=== PATIENT | female | born 1975 | race Caucasian/White ===

== ENCOUNTER → 2020-06-18 13:53 | Outpatient (CLI) | payer MEDICAID, SELFPAY ==
--- NOTE | 2020-06-18 13:59 | US_ITS ---
STUDY: SUPERFICIAL ULTRASOUND - LEFT UPPER EXTREMITY REASON FOR EXAM: Female, 44 years old. Palpable lump upper lt arm TECHNIQUE: A superficial ultrasound was performed with real-time and static szymanski-scale imaging. COMPARISON: None. FINDINGS: The palpable abnormality corresponds to a 1.6 cm x 1.4 cm x 0.8 cm echogenic nodule which is well circumscribed superior to the bicipital groove. This most likely represents a lipoma. US/Ext Non Vasc Limited/Soft Tiss IMPRESSION: The palpable normality most likely corresponds to a 1.6 cm x 1.4 cm x 0.8 cm lipoma. Electronically Signed: Seth Lyon, at 14:55 EST , Service support ,
== END ==
PROVIDERS: PCP Family Medicine; Referring Provider Nurse Practitioner Family; Visit Provider Nurse Practitioner Family
DX: R22.9 Localized swelling, mass and lump, unspecified (principal)
CPT/HCPCS: 76882

== ENCOUNTER 2024-03-18 16:14 | Emergency (ER) | payer MEDICAID, SELFPAY ==
[2024-03-18 16:17] VITALS: BP 155/96; PULSE 88; RESP 16; TEMP 36.4; O2SAT 99; BMI 50.8
--- NOTE | 2024-03-18 16:49 | EX.ED.DYSGE1 ---
HPI <RENO Farley - Last Filed: 03/18/24 17:55> History of Present Illness Chief Complaint: Back Narrative Narrative: Patient is a 48-year-old female with history of of low vitamin D who presents to the emergency department with 1 week of lower leg cramping, 2 days of pain to the left lower back, left upper buttock. Patient states that she had something similar multiple years ago, ended up being low vitamin D. She continues take her vitamin D, she is not sure what this is caused from. Pay states is worse at nighttime, states when she gets up and moving, she does feel better. She is concerned because she works this upcoming week. She denies any falling or traumatic injury. Denies any bowel or bladder incontinence. Denies any fever or chills. PFSH <RENO Farley - Last Filed: 03/18/24 17:55> PFSH Home Medications ?Medication ?Instructions ?Recorded ?Last Taken ?Type naproxen 500 mg tablet (Naprosyn) 500 mg PO BID PRN pain #20 tabs 03/18/24 Unknown Rx Allergy/AdvReac Type Severity Reaction Status Date / Time celecoxib (From Celebrex) Allergy PT UNSURE Verified 03/18/24 16:15 OF REACTION pregabalin (From Lyrica) Allergy PT UNABLE Verified 03/18/24 16:15 TO RESPOND-NEEDS F/U Social History Smoking Status: Never smoker ROS <RENO Farley - Last Filed: 03/18/24 17:55> ROS ED ROS Narrative Constitutional: Negative for fever, chills, weight loss, weakness Eyes: Negative for vision loss, vision change, double vision ENT: Negative for any sore throat, ear pain, congestion Cardiovascular: Negative for any chest pain, tightness, palpitations Respiratory: Negative for any cough, sputum production, hemoptysis, dyspnea, dyspnea on exertion, orthopnea Gastrointestinal: Negative for any abdominal pain, nausea, vomiting, diarrhea, constipation, blood in stool, blood in vomit : Negative for any urinary frequency, dysuria, retention, blood in urine Muscle skeletal: Negative for any neck pain. Positive for lower back pain, rating down the left leg, positive for leg cramping. Neurological: Negative for any headache, syncope, dizziness Skin: Negative for any rashes, itching, abrasions, lacerations Psychiatric: Negative for any depression, anxiety, stress, suicidal ideation, homicidal ideation Hematologic: Negative for any excessive bruising, easy bleeding EXAM <RENO Farley - Last Filed: 03/18/24 17:55> Physical Exam Narrative Exam Narrative: Vital signs reviewed. HEET: Head normocephalic atraumatic, TMs clear bilaterally. Posterior pharynx is clear, moist mucous membranes. Nares clear bilaterally. Neck: Supple with no lymphadenopathy or tenderness. No signs of meningismus. Cardiac: Regular rate and rhythm no murmurs gallops or rubs, equal peripheral pulses bilaterally. Respiratory: Lungs clear to auscultation bilaterally. No chest tenderness. Abdomen: Soft, nontender, nondistended. No abdominal bruit or pulsatile masses. No hepatosplenomegaly Extremities: No peripheral edema, no signs of gross trauma or deformity. Active full range of motion of all extremities. Equal strength to upper and lower extremities. Neuro: Cranial nerves II through XII intact, no focal neurological deficits. Patient was able to stand on heels, stand on tiptoes. Patient had normal gait. Skin: Clean dry and intact with no rash, purpura, petechiae, vesicles or pustules. Backs/flank: No CVA tenderness, no midline spinal tenderness, no deformity. Psych: Normal mood and affect. No SI, HI or acute psychosis. Const Vital Signs: 03/18/24 16:17 Temperature 97.6 F L Temperature Source Temporal Pulse Rate 88 Respiratory Rate 16 Blood Pressure 155/96 H Blood Pressure Mean 115 Pulse Ox 99 Oxygen Delivery Method Room Air <Dr. Maverick Reinoso MD - Last Filed: 03/18/24 19:34> Physical Exam Const Vital Signs: 03/18/24 16:17 Temperature 97.6 F L Temperature Source Temporal Pulse Rate 88 Respiratory Rate 16 Blood Pressure 155/96 H Blood Pressure Mean 115 Pulse Ox 99 Oxygen Delivery Method Room Air [facility] <RENO Farley - Last Filed: 03/18/24 17:55> [facility] Lab Data Labs: Laboratory Results - last 24 hr 03/18/24 17:15 Sodium 141 Potassium 4.1 Chloride 110 H Carbon Dioxide 28.0 Anion Gap 3 L BUN 17 Creatinine 0.82 Estim Creat Clear Calc 112.11 Est GFR (MDRD) Af Amer 94 Est GFR (MDRD) Non-Af 78 BUN/Creatinine Ratio 20.6 H Glucose 78 Calcium 9.2 Treatment and Re-Evaluation :: Differential diagnosis includes however is not limited to: Lumbar strain, sciatica, electrolyte abnormality, muscle strain, cauda equina, spinal abscess Patient appears to be in no obvious respiratory distress, nontoxic, vital signs are stable. Presenting to the emergency department with complaints of leg cramping, left lower back pain and rates down the left leg. Physical examination consistent muscle skeletal pain. Patient will receive a BMP looking for any electrolyte abnormality, IV Toradol. Patient will then be reevaluated. Low suspicion for any infectious etiology, no evidence of any cauda equina, spinal abscess. Patient's laboratory values were unremarkable, no evidence of any electrolyte abnormality. Mild relief with IV Toradol. At this time, physical examination consistent with muscle skeletal strain. She replaced in a short course of NSAIDs. She instructed to ice, form gentle stretching. Instructed return for any worsening symptoms. <Dr. Maverick Reinoso MD - Last Filed: 03/18/24 19:34> [facility] Narrative Medical decision making narrative: I have personally performed a face to face assessment of the patient and have reviewed the AGUSTO Note. I performed a substantive portion of the visit including all aspects of the following. My kingsley findings include: History is back pain. Back pain is atraumatic. Patient Nuys bowel bladder dysfunction. Patient Nuys saddle paresthesia anesthesia. Patient has dragging her foot. Patient denies buckling her knees going up or down steps. Patient denies fever, chills night sweats. Patient denies recent dental procedure. Patient has no known back problems. Exam is remarkable for a BMI of 50.8. Patient has reproducible left paralumbar pain. Patient has pain with bending to the right and left. Greater when she bends the left. Pain with extension and flexion. Gait observed normal without foot drop. No neurovascular mice of the lower extremity. There is practitioner's note was read. Based on my history and physical patient has muscular back pain. Will treat with NSAIDs and she has no contraindication. Medical Decision Making back pain a muscular etiology. Patient does not have symptoms or findings consistent with cauda equina or acute herniated disc. Suspect this is due to degenerative disc disease. Other additions or changes: Treatment with NSAIDs and short course of opiate analgesia. BMP was obtained to assess renal function she there are no prior labs available. Lab Data Attestation: I reviewed the patient's lab results. Lab results narrative: Basic metabolic panel is unremarkable. BUN and creatinine are normal and estimated GFR 78. Labs: Laboratory Results - last 24 hr 03/18/24 17:15 Sodium 141 Potassium 4.1 Chloride 110 H Carbon Dioxide 28.0 Anion Gap 3 L BUN 17 Creatinine 0.82 Estim Creat Clear Calc 112.11 Est GFR (MDRD) Af Amer 94 Est GFR (MDRD) Non-Af 78 BUN/Creatinine Ratio 20.6 H Glucose 78 Calcium 9.2 Discharge Plan Triage Chief Complaint: Back ED Midlevel Provider: Erich Garcia ED Provider: Maverick Reinoso Dx/Rx/DC Orders Clinical Impression: Lumbar back pain, Muscle cramp, Body mass index (BMI) greater than 50 Instructions: ED Back and Neck Pain, General Prescriptions: New naproxen [Naprosyn] 500 mg tablet 500 mg PO BID PRN (Reason: pain) Qty: 20 0RF Primary Care Provider: Capo Sheikh Referrals: Capo Sheikh MD [Primary Care Provider] - Activity Restrictions/Additional Instructions: Ensure that you ice multiple times a day. Perform gentle stretching. Print Language: Comoran Disposition Disposition: Home, Self Care Discharge Date/Time: 03/18/24 18:08
[2024-03-18] MEDS: Ketorolac 15 MG/ML Vial IV (17:13)
[2024-03-18 17:39] LABS: Anion Gap 3 (5-15); BUN 17 mg/dL (7-18); BUN/Creat Ratio 20.6 RATIO (10-20); Calcium,Total 9.2 mg/dL (8.5-10.1); Chloride 110 mmol/L (98-107); Creatinine, Serum 0.82 mg/dL (0.55-1.02); EST Glomerular Filtration Rate 78 mL/min (>60); Est Glom Filt Rate - Afr Amer 94 mL/min (>60); Estimated Creatinine Clearance 112.11 ml/min; Glucose 78 mg/dL (74-106); Potassium 4.1 mmol/L (3.5-5.1); Sodium Level 141 mmol/L (136-145)
== END 2024-03-18 18:08 | disposition home or self-care (01) ==
PROVIDERS: Nurse Practitioner; Emergency Provider Emergency Medicine; PCP Family Medicine; Visit Provider Emergency Medicine
DX: M54.50 Low back pain, unspecified (principal); R25.2 Cramp and spasm
CPT/HCPCS: 80048; 96374; 99282; A4216

== ENCOUNTER 2024-05-29 12:16 | Emergency (ER) | payer MEDICAID, SELFPAY ==
[2024-05-29 12:17] VITALS: BP 156/86; PULSE 90; RESP 16; TEMP 36.1; O2SAT 99; BMI 51.1
--- NOTE | 2024-05-29 13:45 | CT_ITS ---
STUDY: CT BRAIN WITHOUT CONTRAST REASON FOR EXAM: Female, 48 years old. Left-sided atrophy. Redness in the right eye. RADIATION DOSAGE (If Supplied By Facility): CTDIvol = ( 44.99 ) mGy, DLP = ( 796.11 ) mGycm TECHNIQUE: Transaxial CT imaging of the brain was performed without administration of intravenous contrast material. Individualized dose optimization techniques were used for this CT. COMPARISON: No relevant priors. FINDINGS: Normal soft tissue structures. Normal calvarium. Normal size ventricles and extra-axial spaces for the patient''s age. Normal white matter tracts of the cerebral hemispheres. Normal basal ganglia and thalami. Normal brainstem. Normal cerebellum. There is no intracranial hemorrhage. There are no findings of an acute ischemic infarction. Normal visualized paranasal sinuses. CT/Brain/Head without Contrast IMPRESSION: Normal unenhanced CT scan of the brain. Electronically Signed: Seth Lyon MD at 14:43 EDT ,
--- NOTE | 2024-05-29 13:46 | EX.ED.VIS.EY ---
HPI History of Present Illness Chief Complaint: Eye Problem Informant: patient Onset/Context/Timing Location: Left Eye Onset: Month(s) (1) Context: Gradual Onset Timing: Continuous Worsened by: Laying on left side Relieved by: Nothing Associated Symptoms Associated Symptoms - Eyes: Burning, Crusting, Pain, Photophobia and Redness; Negative for Eyelid swelling History of injury: No Narrative Narrative: Patient presents with left eye pain that has been gradually getting worse over the past month. Patient states it is constant. Patient describes it as dull and stinging. Patient states her pain is over the left eye and left temporal area. Patient states it is worse when she lays on her left side. Patient states nothing seems to help with it. Patient denies any visual changes. Patient admits to some redness in her left eye. Patient states that sometimes she has some crusting at night. Patient denies any other discharge or drainage. Patient denies any trauma or injury. Patient denies any fevers or chills. PFSH PFS Medical History (Updated 05/29/24 @ 15:[address] Antony Andino DO) Hypothyroidism Medical History no medical history Home Medications ?Medication ?Instructions ?Recorded ?Last Taken ?Type naproxen 500 mg tablet (Naprosyn) 500 mg PO BID PRN pain #20 tabs 03/18/24 Unknown Rx Allergy/AdvReac Type Severity Reaction Status Date / Time celecoxib (From Celebrex) Allergy PT UNSURE Verified 05/29/24 12:17 OF REACTION pregabalin (From Lyrica) Allergy PT UNABLE Verified 05/29/24 12:17 TO RESPOND-NEEDS F/U Surgical History (Updated 05/29/24 @ 14:[address] Antony Andino DO) H/O: hysterectomy Social History Smoking Status: Never smoker ROS ROS ED Constitutional Constitutional ED: Denies chills or fever(s) Eyes Eyes: Denies blurry vision or change in vision ENT ENT ED: Denies rhinorrhea or sore throat Cardiovascular Cardiovascular: Denies chest pain or palpitations Respiratory/Chest Respiratory/Chest: Denies cough or dyspnea Gastrointestinal Gastrointestinal: Reports nausea; Denies vomiting Genitourinary Genitourinary ED: Denies dysuria or hematuria Musculoskeletal Musculoskeletal: Denies back pain or neck pain Integumentary Denies abscess or rash Neurologic Neurologic: Reports headache(s); Denies weakness Allergic/Immunologic Allergic/Immunologic ED: Denies mouth swelling or urticaria EXAM Physical Exam Const Vital Signs: 05/29/24 12:17 Temperature 97 F L Temperature Source Temporal Pulse Rate 90 Respiratory Rate 16 Blood Pressure 156/86 H Blood Pressure Mean 109 Pulse Ox 99 Oxygen Delivery Method Room Air Positive well nourished and well developed General Appearance ED: well developed and NAD HEENT HEENT Narrative: There is no tenderness over the temporal artery. atraumatic Eyes Eyes Narrative: Pupils are equal, round, and reactive to light bilaterally. Extraocular muscles are intact. There is some conjunctival injection on the left. There is no discharge or drainage. Anterior chamber was clear. There is no hyphema noted. Funduscopic examination was not well-tolerated. Tetracaine and fluorescein dye was applied. Under slit-lamp examination, there are no corneal abrasions noted. Anterior chamber was clear. There is no cell or flare. Neck supple and no JVD Resp normal respiratory effort and clear to auscultation bilaterally Cardio regular rate and regular rhythm GI non-tender and non-distended Neuro oriented x3, CN's II-XII intact bilaterally, moves all extremities and no sensory deficits noted Sensorium / Orientation: alert Motor Exam: strength 5/5 throughout MDM MDM MDM Narrative Medical decision making narrative: Differential diagnosis includes corneal abrasion, conjunctivitis, foreign body, temporal arteritis, sinusitis, and intracranial mass. CT scan of the brain will be obtained to assess for intracranial mass and intracranial bleeding. CBC will be obtained to assess for leukocytosis and anemia. Basic metabolic profile will be obtained to assess for electrolyte abnormality and renal function. Sed rate will be obtained to assess for acute phase reactant. Lab Data Attestation: I reviewed the patient's lab results. Lab results narrative: CBC was reviewed and was within normal limits. Basic metabolic profile was reviewed and was essentially within normal limits. Sed rate was reviewed and was normal at 29. Radiography Diagnostic Testing: CT scan of the brain was obtained. There is no acute intracranial abnormality. This was interpreted by the radiologist and was also independently reviewed by myself. Treatment and Re-Evaluation Narrative: Patient was given Reglan and Benadryl. Patient is feeling better on reevaluation. Patient was advised of her findings. Patient was given a referral for ophthalmology. Patient was instructed to follow-up in 3 to 5 days. Patient was instructed to return if worse in any way. Patient understood and was agreeable with the plan. All questions were answered. Discharge Plan Triage Chief Complaint: Eye Problem ED Provider: Antony Andino Dx/Rx/DC Orders Clinical Impression: Headache, Pain in left eye Instructions: ED Pain, Acute, Uncertain Cause Prescriptions: No Action naproxen [Naprosyn] 500 mg tablet 500 mg PO BID PRN (Reason: pain) Qty: 20 0RF Primary Care Provider: Capo Sheikh Referrals: Siva De Leon MD [Med Staff - Active Staff] - 3-5 Days Capo Sheikh MD [Primary Care Provider] - 3-5 Days Print Language: Japanese Disposition Disposition: Home, Self Care
[2024-05-29] MEDS: Tetracaine 0.5% Ophthalmic Bottle 1 DRP OPHTHALMIC (14:01)
[2024-05-29] MEDS: Fluorescein 1 MG STRIP 1 STRIP OPHTHALMIC (14:01)
[2024-05-29 14:16] VITALS: BP 150/82; PULSE 88; RESP 16; O2SAT 99
[2024-05-29 14:19] LABS: Erythrocyte Sedimentation Rate 29 mm/hr (0-30)
[2024-05-29 14:22] LABS: Absolute Lymphocyte Count 2.33 X10^3/uL (0.83-4.51); Basophil# 0.04 X10^3/uL; Basophil% 0.6 % (0-1); Eosinophil# 0.15 X10^3/uL; Eosinophils% 2.1 % (0-5); Hemoglobin 13.3 g/dL (12.0-15.0); Lymphocyte # 2.33 X10^3/ul (0.83-4.51); Mean Corp Hgb Conc 31.7 g/dL (32-36); Mean Corpuscular Hgb 27.1 pg (27.0-32.0); Mean Corpuscular Volume 85.5 fL (81-99); Monocyte# 0.49 X10^3/uL; Monocyte% 6.9 % (0-10); NRBC Flagged by Analyzer 0 % (0-5); Neutrophil # 4.02 X10^3/uL (2.7-7.7); Platelet Count 291 K/mm3 (150-450); RBC Distribution Width SD 43.6 fl (35.1-43.9); Red Blood Count 4.91 M/mm3 (4.2-5.4); White Blood Count 7.1 K/mm3 (4.4-11.0)
[2024-05-29 14:28] LABS: Anion Gap 4 (5-15); BUN 17 mg/dL (7-18); BUN/Creat Ratio 21.6 RATIO (10-20); Calcium,Total 9.5 mg/dL (8.5-10.1); Chloride 107 mmol/L (98-107); Creatinine, Serum 0.79 mg/dL (0.55-1.02); EST Glomerular Filtration Rate 82 mL/min (>60); Est Glom Filt Rate - Afr Amer 99 mL/min (>60); Estimated Creatinine Clearance 116.86 ml/min; Glucose 94 mg/dL (74-106); Potassium 3.4 mmol/L (3.5-5.1); Sodium Level 142 mmol/L (136-145)
== END 2024-05-29 15:28 | disposition home or self-care (01) ==
PROVIDERS: Emergency Provider Emergency Medicine; PCP Family Medicine; Visit Provider Emergency Medicine
DX: H57.12 Ocular pain, left eye (principal); R51.9 Headache, unspecified; Z90.710 Acquired absence of both cervix and uterus
CPT/HCPCS: 70450; 80048; 85025; 85652; 99284; A4216